=== PATIENT | female | born 1935 | race Caucasian/White ===

== ENCOUNTER 2024-05-28 18:30 | Emergency (ER) | payer MEDICARE, OTHER ==
[2024-05-28] MEDS ORDERED: Sodium Chloride 0.9% 1000 ML 1,000 ML ONE (19:05)
[2024-05-28] MEDS: Sodium Chloride 0.9% 1000 ML 1,000 ML IV STA (19:08)
[2024-05-28 19:10] LABS: Absolute Neutrophil Ct (ANC) 4.36 x10^3/uL (1.56-6.13); BASOPHIL % 0.3 % (0.1-1.2); Basophil (Absolute #) 0.02 x10^3/uL (0.01-0.08); Eosinophil (Absolute #) 0 x10^3/uL (0.04-0.36); Hematocrit 31.7 % (34.1-44.9); Hemoglobin 10.4 g/dL (11.2-15.7); IMMATURE GRAN # 0.04 x10^3u/L (0.001-0.031); IMMATURE GRAN % 0.5 % (0.001-0.429); Lymphocyte (Absolute #) 2.23 x10^3/uL (1.18-3.74); Lymphocytes % 30.1 % (19.3-51.7); Mean Cell Volume 94.3 fL (79.4-94.8); Mean Corpuscular Hgb Concent. 32.8 g/dL (32.2-35.5); Mean Platelet Volume 9.3 fL (9.4-12.3); Monocyte (Absolute #) 0.77 x10^3/uL (0.24-0.86); Monocytes % 10.4 % (4.7-12.5); Neutrophil % 58.7 % (34.0-71.1); Platelet Count 391 x10^3/uL (182-369); Red Blood Count 3.36 x10^6/uL (3.93-5.22); Red Cell Distribution Width 15.7 % (11.7-14.4); White Blood Count 7.4 x10^3/uL (3.98-10.04)
[2024-05-28 19:23] LABS: ALBUMIN 4.3 g/dL (3.5-5.0); ANION GAP 25.9 MEQ/L (5-15); BILIRUBIN,TOTAL 0.5 mg/dL (0.2-1.3); Calcium 8.9 mg/dL (8.4-10.2); Creatinine 1 12.69 mg/dL (0.52-1.04); EST GLOMERULAR FILTRATION RATE 2.6 ML/MIN; Total Protein 7.3 g/dL (6.3-8.2)
[2024-05-28 19:37] LABS: Potassium 6.6 mmol/L (3.5-5.1)
[2024-05-28] MEDS ORDERED: Calcium Gluconate 10% 1000 MG IV ONE (19:55)
[2024-05-28] MEDS ORDERED: HUMULIN R ONE (19:56)
[2024-05-28] MEDS ORDERED: SODIUM BICARBONATE 50 MEQ/50 ML ABBOJECT IV ONE (19:57)
[2024-05-28] MEDS ORDERED: Sodium Chloride 0.9% 100 ML ONE (19:57)
[2024-05-28] MEDS ORDERED: D50W 50 ml Abboject IV ONE ×2 (19:57→20:12)
[2024-05-28] MEDS: Calcium Gluconate 10% 1000 MG 1,000 MG in Sodium Chloride 0.9% 100 ML IV ONE (19:58)
[2024-05-28] MEDS: HUMULIN R IV ONE (20:01)
[2024-05-28] MEDS: D50W 50 ml Abboject IV ONE ×2 (20:01→20:14)
[2024-05-28] MEDS: SODIUM BICARBONATE 50 MEQ/50 ML ABBOJECT IV ONE (20:02)
--- NOTE | 2024-05-28 20:17 | ERPHSYRPT ---
- History of Present Illness Patient Subjective Stated Complaint: Pt had lab work done today and has a critical BUN, creatinine, CO2, and potassium Triage Nursing Assessment: Pt brought to the ER by her son, hypotensive, rates pain as 7/10, pulses normal, skin n/w/d, swelling to the donna lower ext, pt fell Saturday night but reports no breaks, pt was sick prior to that for a few weeks and was not drinking very much, short of breath, denies chest pain, appears weak and lethargic Physician History: Patient got some routine labs done today and her primary doctor got them and noticed that there is some acute kidney injury going on sent him here. She does not have any complaints except she feels a little bit fatigued and her urine output has decreased. She is still producing urine but just in small amounts.Nothing makes his symptoms better or worse. She is in no distress. Allergies/Adverse Reactions: No Known Drug Allergies Allergy (Verified 05/28/24 18:54) Home Medications: ALPRAZolam [Alprazolam] 0.5 mg PO TID 05/28/24 [History] Allopurinol 100 mg [Zyloprim 100 mg] 100 mg PO DAILY 05/28/24 [History] Lisinopril/Hydrochlorothiazide [Lisinopril-Hctz 20-12.5 mg Tab] 1 tab PO DAILY 05/28/24 [History] Pravastatin Sodium 80 mg PO DAILY 05/28/24 [History] minoxidiL [Minoxidil] 2.5 mg PO BID 05/28/24 [History] Hx Influenza Vaccination/Date Given: Yes Hx Pneumococcal Vaccination/Date Given: Yes Travel Risk - International Travel Have you traveled outside of the country in past 3 weeks: No - Emerging Infectious Disease Are you exhibiting symptoms associated with any current EIDs: No - Review of Systems Constitutional: Fatigue Eyes: No Symptoms Respiratory: No Symptoms Cardiac: No Symptoms Abdominal/Gastrointestinal: No Symptoms Skin: No Symptoms All Other Systems: Reviewed and Negative - Past Medical History Pertinent Past Medical History: Yes Cardiac History: Hypertension Psycho-Social History: Anxiety - Past Surgical History Past Surgical History: Yes Female Surgical History: Hysterectomy - Social History Smoking Status: Never smoker Exposure to second hand smoke: No Drug Use: none - Social Determinants of Health Will the patient participate in the screening: Yes Do you worry about a steady place to live?: No Do you have any problems with any of the following?: No known problems In the past 12 months,have you had to go without utilities?: No Transportation Issues: No Has anyone in your support network made you feel unsafe?: No Have you or anyone in your house had to go w/o enough food: No - Nursing Vital Signs Nursing Vital Signs: Pain Scale Pain Intensity 7 - Physical Exam General Appearance: no apparent distress Eye Exam: PERRL/EOMI Neck Exam: normal inspection Respiratory Exam: normal breath sounds Cardiovascular Exam: regular rate/rhythm Gastrointestinal/Abdomen Exam: soft, normal bowel sounds Neurologic Exam: alert, oriented x 3 Skin Exam: normal color, warm, dry - Course Nursing assessment & vital signs reviewed: Yes Ordered Tests: Active Orders 24 hr Category Date Time Status EKG-ER Only STAT Care 05/28/24 19:52 Active CBC W DIFF Stat Lab 05/28/24 19:00 Completed CMP Stat Lab 05/28/24 19:00 Completed Medication Summary Generic Name Dose Route Start Last Admin Trade Name Freq PRN Reason Stop Dose Admin Sodium Chloride 1,000 mls @ 250 mls/hr 05/28/24 19:02 05/28/24 19:08 Sodium Chloride 0.9% 1000 Ml IV 05/28/24 23:01 250 mls/hr .Q4H STA Administration Calcium Gluconate 1,000 mg/ 110 mls @ 220 mls/hr 05/28/24 19:48 05/28/24 19:58 Sodium Chloride IV 05/28/24 20:17 220 mls/hr ONCE ONE 220 mls/hr Administration Discontinued Medications Generic Name Dose Route Start Last Admin Trade Name Freq PRN Reason Stop Dose Admin Albuterol Sulfate 2.5 mg 05/28/24 19:42 Albuterol Sulfate 2.5 Mg/3 Ml Neb IH 05/28/24 19:43 STAT ONE Calcium Gluconate Confirm 05/28/24 19:55 Calcium Gluconate 1000 Mg/10 Ml Vial Administered 05/28/24 19:56 Dose 1,000 mg IV .STK-MED ONE Dextrose 25 ml 05/28/24 19:50 05/28/24 20:01 Dextrose 50%-Water 50 Ml Abboject IV 05/28/24 19:51 25 ml STAT ONE Administration Dextrose 25 ml 05/28/24 19:52 Dextrose 50%-Water 50 Ml Abboject IV 05/28/24 19:53 STAT ONE Dextrose Confirm 05/28/24 19:57 Dextrose 50%-Water 50 Ml Abboject Administered 05/28/24 19:58 Dose 50 ml IV .STK-MED ONE Sodium Chloride Confirm 05/28/24 19:05 Sodium Chloride 0.9% 1000 Ml Administered 05/28/24 19:06 Dose 1,000 mls @ ud .ROUTE .STK-MED ONE Sodium Chloride Confirm 05/28/24 19:57 Sodium Chloride 0.9% Administered 05/28/24 19:58 Dose 100 mls @ ud .ROUTE .STK-MED ONE Insulin Human Regular 10 unit 05/28/24 19:48 05/28/24 20:01 Insulin Regular, Human 1 Unit IV 05/28/24 19:49 10 unit STAT ONE Administration Insulin Human Regular Confirm 05/28/24 19:56 Insulin Regular, Human 1 Unit Administered 05/28/24 19:57 Dose 10 unit .ROUTE .STK-MED ONE Sodium Bicarbonate 50 meq 05/28/24 19:51 05/28/24 20:02 Sodium Bicarbonate 1 Meq/Ml 50ml Syringe IV 05/28/24 19:52 50 meq STAT ONE Administration Sodium Bicarbonate Confirm 05/28/24 19:57 Sodium Bicarbonate 1 Meq/Ml 50ml Syringe Administered 05/28/24 19:58 Dose 50 meq IV .STK-MED ONE Lab/Rad Data: Laboratory Result Diagrams 05/28/24 19:00 05/28/24 19:00 Laboratory Results 05/28/24 05/28/24 Range/Units 19:00 19:00 WBC 7.4 (3.98-10.04) x10^3/uL RBC 3.36 L (3.93-5.22) x10^6/uL Hgb 10.4 L (11.2-15.7) g/dL Hct 31.7 L (34.1-44.9) % MCV 94.3 (79.4-94.8) fL MCH 31.0 (25.6-32.2) pg MCHC 32.8 (32.2-35.5) g/dL RDW 15.7 H (11.7-14.4) % Plt Count 391 H (182-369) x10^3/uL MPV 9.3 L (9.4-12.3) fL Gran % 58.7 (34.0-71.1) % Immature Gran % (Auto) 0.5 H (0.001-0.429) % Nucleat RBC Rel Count 0.0 (0.00-0.2) % Eos # (Auto) 0 L (0.04-0.36) x10^3/uL Immature Gran # (Auto) 0.04 H (0.001-0.031) x10^3u/L Absolute Lymphs (auto) 2.23 (1.18-3.74) x10^3/uL Absolute Monos (auto) 0.77 (0.24-0.86) x10^3/uL Absolute Nucleated RBC 0.00 (0.00-0.012) x10^3u/L Lymphocytes % 30.1 (19.3-51.7) % Monocytes % 10.4 (4.7-12.5) % Eosinophils % 0.0 L (0.7-5.8) % Basophils % 0.3 (0.1-1.2) % Absolute Granulocytes 4.36 (1.56-6.13) x10^3/uL Basophils # 0.02 (0.01-0.08) x10^3/uL Sodium 135 (135-145) mmol/L Potassium 6.6 H* (3.5-5.1) mmol/L Chloride 101 (98-107) mmol/L Carbon Dioxide 15 L* (22-30) mmol/L Anion Gap 25.9 H (5-15) MEQ/L BUN 138 H (7-17) mg/dL Creatinine 12.69 H (0.52-1.04) mg/dL Estimated GFR 2.6 ML/MIN Glucose 116 H (74-106) mg/dL Calcium 8.9 (8.4-10.2) mg/dL Total Bilirubin 0.50 (0.2-1.3) mg/dL AST 30 (14-36) U/L ALT 27 (0-35) U/L Alkaline Phosphatase 70 (38-126) U/L Serum Total Protein 7.3 (6.3-8.2) g/dL Albumin 4.3 (3.5-5.0) g/dL - Progress Progress: improved Progress Note: Patient was stable throughout stay. She had a elevated creatinine is around 12.7 BUN was around 135. Her potassium was 6.6. I went ahead and started her on calcium gluconate, insulin, sodium bicarb, normal saline,An albuterol treatment and10 units of regular insulin.Patient did not have any EKG changes. The EKG was done by me is interpreted by me. There was no ST or T changes. The re is no prolonged QT waves. Normal sinus rhythm. The patient needs to be transferred to a place where there is nephrology. I spoke with Dr. Prado At [facility]. He excepted the patient in an ER to ER transfer.I gave her a bolus of 250 and then 1 started her drip 100/h. 05/28/24 20:15 - Departure Departure Disposition: Transfer Clinical Impression: End stage renal disease Condition: Stable Critical Care Time: No Instructions: Hypokalemia (DC), Dehydration, Adult (DC), End-stage kidney disease (kidney failure)
[2024-05-28] MEDS ORDERED: PROVENTIL 2.5 MG/3 ML NEB IH ONE (20:19)
[2024-05-28] MEDS: PROVENTIL 2.5 MG/3 ML NEB IH ONE (20:36)
[2024-05-28 21:43] LABS: ANION GAP 25.9 MEQ/L (5-15); Calcium 9.2 mg/dL (8.4-10.2); Creatinine 1 12.92 mg/dL (0.52-1.04); EST GLOMERULAR FILTRATION RATE 2.5 ML/MIN; Potassium 5.6 mmol/L (3.5-5.1)
[2024-05-28 23:26] VITALS: O2SAT 96
[2024-05-28 23:33] LABS: Appearance Cloudy (Clear); Bacteria None Seen /HPF (None Seen); Bilirubin Negative (Negative); Blood Negative (Negative); Epithelial Cells Rare /HPF (None Seen); Glucose, Urine Negative (Negative); Ketones Trace (Negative); Leukocyte Esterase Large (Negative); Nitrite Negative (Negative); Protein,Urine Dip 30 (Negative); Specific Gravity 1.015 (1.005-1.030); WBC 51-100 /HPF (0-5)
[2024-05-29 03:01] VITALS: BP 82/44; PULSE 103; RESP 20
== END 2024-05-29 01:34 | disposition short-term general hospital (02) ==
LOC: ED 18:30
DX: I12.0 Hypertensive chronic kidney disease with stage 5 chronic kidney disease or end stage renal disease (principal); N18.6 End stage renal disease; Z79.899 Other long term (current) drug therapy
CPT/HCPCS: 36415; 80048; 80053; 81001; 85025; 87086; 93005; 94640; 96361; 96365; 96374; 96375; 99285; J0612; J1815; J7609; A9270-GY